=== PATIENT | female | born 1970 | race Caucasian/White ===

== ENCOUNTER 2018-08-11 08:30 | Outpatient (RCR) | payer MEDICARE, MEDICAID | END 2018-10-26 | disposition still patient (30) | LOC: SPEECH | DX: J38.1 Polyp of vocal cord and larynx (principal) ==

== ENCOUNTER 2019-07-07 08:26 | Emergency (ER) | payer MEDICARE, MEDICAID ==
[~2019-07-07] VITALS: Ht 162.6 cm; Wt 68.2 kg
[2019-07-07] MEDS ORDERED: GABAPENTIN400 M2 PO (08:35)
[2019-07-07] MEDS ORDERED: BUSPIRONE HYDRO10 MG PO (08:35)
[2019-07-07] MEDS ORDERED: CATAPRES0.2 M1 PO (08:35)
[2019-07-07] MEDS ORDERED: BACLOFEN20 MG PO (08:35)
[2019-07-07] MEDS ORDERED: SEROQUEL400 MG PO (08:35)
[2019-07-07] MEDS ORDERED: HYDROXYZINE HCL25 M1 PO (08:36)
[2019-07-07] MEDS ORDERED: ULTRAM50 M1 PO (09:27)
[2019-07-07 09:43] VITALS: BP 116/79
== END 2019-07-07 09:44 | disposition home or self-care (01) ==
LOC: ED 08:26
DX: M17.11 Unilateral primary osteoarthritis, right knee (principal); F31.9 Bipolar disorder, unspecified; M79.7 Fibromyalgia; Z87.891 Personal history of nicotine dependence; Z90.89 Acquired absence of other organs; Z98.84 Bariatric surgery status

== ENCOUNTER 2019-07-10 08:18 | Emergency (ER) | payer MEDICARE, MEDICAID ==
[~2019-07-10 08:18] MED LIST: BACLOFEN20 MG PO; BUSPIRONE HYDRO10 MG PO; CATAPRES0.2 M1 PO; GABAPENTIN400 M2 PO; HYDROXYZINE HCL25 M1 PO; SEROQUEL400 MG PO; ULTRAM50 M1 PO
[2019-07-10] MEDS ORDERED: EMGALITY120 MG/1 M SQ (08:27)
[2019-07-10] MEDS ORDERED: TRAMADOL 50 MG TAB PO (08:28)
[2019-07-10 09:34] VITALS: BP 126/82
== END 2019-07-10 09:33 | disposition home or self-care (01) ==
LOC: ED 08:18
DX: G43.909 Migraine, unspecified, not intractable, without status migrainosus (principal); I25.10 Atherosclerotic heart disease of native coronary artery without angina pectoris; Z87.891 Personal history of nicotine dependence; Z98.51 Tubal ligation status; Z90.49 Acquired absence of other specified parts of digestive tract
CPT/HCPCS: J1200; J2550

== ENCOUNTER 2019-09-04 07:58 | Emergency (ER) | payer MEDICARE, MEDICAID ==
[~2019-09-04] VITALS: Ht 162.6 cm; Wt 70.0 kg
[~2019-09-04 07:58] MED LIST changes: +EMGALITY120 MG/1 M SQ; +TRAMADOL 50 MG TAB PO
[2019-09-04 08:56] LABS: EOS % 0.4 % (1.0-5.0); HEMATOCRIT 44.8 % (37.0-47.0); HEMOGLOBIN 14.8 g/dL (12.5-16.0); LYMPH# 2.7 (1.50-4.00); MEAN CELL VOLUME 97 fl (78-100); MEAN CORPUSCULAR HEMOGLOBIN 32 pg (27-31); MEAN CORPUSCULAR HGB CONC 33 g/dL (33-37); MEAN PLATELET VOLUME 9.3 fl (7.4-10.4); MONO # 0.9 (0.20-0.80); NEU # 6.1 (1.40-6.50); PLATELET COUNT 328 K/mm3 (130-400); RED BLOOD COUNT 4.61 M/mm3 (4.10-5.30); RED CELL DISTRIBUTION WIDTH 13.4 % (11.5-14.5); WHITE BLOOD COUNT 9.8 K/mm3 (4.8-10.8)
[2019-09-04 09:00] LABS: ALBUMIN 4.1 g/dL (3.5-5.0); POTASSIUM 4.1 mmol/L (3.5-5.1)
[2019-09-04 09:05] LABS: TOTAL BILIRUBIN 0.3 mg/dL (0.2-1.2)
[2019-09-04] MEDS ORDERED: VIBRAMYCIN HYC100 MG PO (09:26)
[2019-09-04 10:19] VITALS: BP 155/104
== END 2019-09-04 10:23 | disposition home or self-care (01) ==
LOC: ED 07:58
PROVIDERS: Nurse Practitioner Primary Care
DX: J06.9 Acute upper respiratory infection, unspecified (principal); F41.9 Anxiety disorder, unspecified; F32.9 Major depressive disorder, single episode, unspecified; Z20.828 Contact with and (suspected) exposure to other viral communicable diseases; Z87.891 Personal history of nicotine dependence; Z98.84 Bariatric surgery status

== ENCOUNTER → 2019-10-16 | Outpatient (CLI) | payer MEDICARE, MEDICAID ==
[~2019-10-16] MED LIST changes: +VIBRAMYCIN HYC100 MG PO
== END ==
LOC: LAB 12:47
DX: Z20.828 Contact with and (suspected) exposure to other viral communicable diseases (principal)

== ENCOUNTER → 2019-10-26 | Outpatient (CLI) | payer MEDICARE, MEDICAID ==
[2019-10-28 06:18] LABS: ALTERNARIA TENUIS CNT <0.10 kU/L (()); ASPERGILLUS FUMIGATUS AL COUNT <0.10 kU/L (()); AUREOBASIDIUM PULLULANS CNT <0.10 kU/L (()); CANDIDA ALBICANS ALLERGN COUNT <0.10 kU/L (()); CLADOSPORIUM ALLERGEN COUNT <0.10 kU/L (()); FUSARIUM MONILIFORME ALL COUNT <0.10 kU/L (()); MUCOR RACEMOSUS ALLERGEN COUNT <0.10 kU/L (()); PHOMA BETAE ALLERGEN COUNT <0.10 kU/L (()); STEMPHYLIUM BOTRYOSUM AL COUNT <0.10 kU/L (())
[2019-10-28 06:19] LABS: EPICOCCUM PURPURANCEN AL COUNT <0.10 kU/L (()); PENICILLIUM NOTATUM ALLR COUNT <0.10 kU/L (())
== END ==
LOC: LAB 08:55
PROVIDERS: Nurse Practitioner
DX: J32.9 Chronic sinusitis, unspecified (principal); R05 Cough

== ENCOUNTER → 2020-02-02 | Outpatient (CLI) | payer MEDICARE, MEDICAID ==
[2020-02-03 10:11] LABS: AFFIRM VAGINITIS PANEL RESULTS AMS
== END ==
LOC: LAB 16:59
PROVIDERS: Physician Assistant
DX: Z20.2 Contact with and (suspected) exposure to infections with a predominantly sexual mode of transmission (principal)

== ENCOUNTER → 2020-02-22 | Outpatient (CLI) | payer MEDICARE, MEDICAID ==
[2020-02-22 09:21] LABS: ALBUMIN 4.1 g/dL (3.5-5.0); POTASSIUM 4.6 mmol/L (3.5-5.1)
[2020-02-22 09:23] LABS: CALCIUM 8.9 mg/dL (8.3-10.5)
[2020-02-22 09:24] LABS: TOTAL PROTEIN 6.5 g/dL (6.4-8.3)
[2020-02-22 09:26] LABS: TOTAL BILIRUBIN 0.2 mg/dL (0.2-1.2)
== END ==
LOC: LAB 08:56
PROVIDERS: Physician Assistant
DX: Z00.00 Encounter for general adult medical examination without abnormal findings (principal)

== ENCOUNTER → 2020-02-22 | Outpatient (CLI) | payer MEDICARE, MEDICAID | LOC: MAMMO 08:30 | DX: Z12.31 Encounter for screening mammogram for malignant neoplasm of breast (principal) ==

== ENCOUNTER 2020-12-18 08:51 | Emergency (ER) | payer MEDICARE, MEDICAID ==
[~2020-12-18] VITALS: Wt 83.9 kg
[2020-12-18] MEDS ORDERED: PREDNISONE20 M1 PO (09:52)
[2020-12-18 11:07] VITALS: BP 155/101
== END 2020-12-18 10:02 | disposition home or self-care (01) ==
LOC: ED 08:51
DX: H69.90 Unspecified Eustachian tube disorder, unspecified ear (principal); J06.9 Acute upper respiratory infection, unspecified; I10 Essential (primary) hypertension; F41.9 Anxiety disorder, unspecified; F17.200 Nicotine dependence, unspecified, uncomplicated; Z20.822 Contact with and (suspected) exposure to COVID-19; Z79.899 Other long term (current) drug therapy
CPT/HCPCS: J7512

== ENCOUNTER 2021-01-12 07:57 | Emergency (ER) | payer MEDICARE, MEDICAID ==
[~2021-01-12] VITALS: Ht 167.6 cm; Wt 83.9 kg
[~2021-01-12 07:57] MED LIST changes: +PREDNISONE20 M1 PO
[2021-01-12 08:00] VITALS: BP 130/95
[2021-01-12] MEDS ORDERED: QUETIAPINE FUM400 M1 PO (08:05)
[2021-01-12] MEDS ORDERED: CLONIDINE HYDR0.1 MG PO (08:06)
[2021-01-12] MEDS ORDERED: TRAMADOL 50 MG TAB PO (08:06)
[2021-01-12] MEDS ORDERED: VARENICLINE TART1 MG PO (08:07)
[2021-01-12] MEDS ORDERED: UBRELVY50 MG PO (08:20)
== END 2021-01-12 09:45 | disposition left against medical advice (07) ==
LOC: ED 07:57
DX: R51.9 Headache, unspecified (principal); F41.9 Anxiety disorder, unspecified; F32.A Depression, unspecified; F17.210 Nicotine dependence, cigarettes, uncomplicated; Z86.69 Personal history of other diseases of the nervous system and sense organs; Z79.899 Other long term (current) drug therapy

== ENCOUNTER → 2021-01-28 | Outpatient (CLI) | payer MEDICARE, MEDICAID ==
[~2021-01-28] MED LIST changes: +CLONIDINE HYDR0.1 MG PO; +QUETIAPINE FUM400 M1 PO; +UBRELVY50 MG PO; +VARENICLINE TART1 MG PO
[2021-01-28 12:23] LABS: BASO # 0.03 K/mm3 (0.02-0.10); EOS % 1.3 % (1.0-5.0); HEMATOCRIT 44.7 % (37.0-47.0); HEMOGLOBIN 14.6 g/dL (12.5-16.0); LYMPH# 3.46 K/mm3 (1.50-4.00); MEAN CELL VOLUME 102 fl (78-100); MEAN CORPUSCULAR HEMOGLOBIN 33 pg (27-31); MEAN CORPUSCULAR HGB CONC 33 g/dL (33-37); MEAN PLATELET VOLUME 8.9 fl (7.4-10.4); MONO # 0.59 K/mm3 (0.20-0.80); NEU # 3.78 K/mm3 (1.40-6.50); PLATELET COUNT 374 K/mm3 (130-400); RED BLOOD COUNT 4.38 M/mm3 (4.10-5.30)
[2021-01-28 12:31] LABS: POTASSIUM 4.2 mmol/L (3.5-5.1)
[2021-01-28 12:32] LABS: ALBUMIN 4.5 g/dL (3.5-5.0)
[2021-01-28 12:33] LABS: CALCIUM 9.6 mg/dL (8.3-10.5)
[2021-01-28 12:34] LABS: TOTAL PROTEIN 7.4 g/dL (6.4-8.3)
[2021-01-28 12:36] LABS: TOTAL BILIRUBIN 0.4 mg/dL (0.2-1.2)
== END ==
LOC: LAB 12:04
PROVIDERS: Family Medicine
DX: Z00.00 Encounter for general adult medical examination without abnormal findings (principal); E78.5 Hyperlipidemia, unspecified; R73.9 Hyperglycemia, unspecified

== ENCOUNTER → 2021-07-16 | Outpatient (CLI) | payer MEDICARE, MEDICAID | LOC: LAB 13:01 | DX: H66.92 Otitis media, unspecified, left ear (principal); F41.1 Generalized anxiety disorder; Z77.011 Contact with and (suspected) exposure to lead ==

== ENCOUNTER → 2022-04-28 | Outpatient (CLI) | payer MEDICARE, MEDICAID ==
[2022-04-28 13:33] LABS: BASO # 0.01 K/mm3 (0.02-0.10); EOS # 0.13 K/mm3 (0.04-0.40); EOS % 1.8 % (1.0-5.0); HEMATOCRIT 42.9 % (37.0-47.0); HEMOGLOBIN 13.9 g/dL (12.5-16.0); LYMPH# 2.78 K/mm3 (1.50-4.00); MEAN CELL VOLUME 95 fl (78-100); MEAN CORPUSCULAR HEMOGLOBIN 31 pg (27-31); MEAN CORPUSCULAR HGB CONC 32 g/dL (33-37); MEAN PLATELET VOLUME 9.6 fl (7.4-10.4); MONO # 0.49 K/mm3 (0.20-0.80); NEU # 3.74 K/mm3 (1.40-6.50); PLATELET COUNT 312 K/mm3 (130-400); RED BLOOD COUNT 4.51 M/mm3 (4.10-5.30); WHITE BLOOD COUNT 7.2 K/mm3 (4.8-10.8)
[2022-04-28 13:36] LABS: ALBUMIN 4.2 g/dL (3.5-5.0); SODIUM 138 mmol/L (136-145)
[2022-04-28 13:37] LABS: CALCIUM 9.9 mg/dL (8.3-10.5)
[2022-04-28 13:38] LABS: GLUCOSE 89 mg/dL (65-105)
[2022-04-28 13:39] LABS: TOTAL PROTEIN 6.8 g/dL (6.4-8.3)
[2022-04-28 13:40] LABS: CARBON DIOXIDE 24 mmol/L (22-29); TOTAL BILIRUBIN 0.2 mg/dL (0.2-1.2)
[2022-04-28 13:44] LABS: AST-SGOT 17 U/L (5-34)
[2022-04-28 13:45] LABS: ALT/SGPT 12 U/L (0-55)
[2022-04-28 13:52] LABS: TROPONIN-I < 0.030 ng/mL (<0.030)
== END ==
LOC: LAB 13:03
PROVIDERS: Nurse Practitioner
DX: F41.9 Anxiety disorder, unspecified (principal); M19.90 Unspecified osteoarthritis, unspecified site; I10 Essential (primary) hypertension; R00.2 Palpitations

== ENCOUNTER → 2023-09-02 | Outpatient (CLI) | payer MEDICARE, MEDICAID ==
[~2023-09-02] MED LIST changes: +ALBUTEROL2.5 MG/3 M IH; +B12 ACTIVE1000 MCG PO; +CALCIUM 600 MG-1 TAB PO; +CLONIDINE HYDR0.2 MG PO; +LISINOPRIL10 MG PO; +MAGNESIUM400 MG PO; +MULTIPLE VITAMI1 TA5 PO; +PROPRANOLOL HCL60 M3 PO; +SEROQUEL300 M1 PO; +VIT D PO
== END ==
LOC: MAMMO 13:20
DX: Z12.31 Encounter for screening mammogram for malignant neoplasm of breast (principal)